=== PATIENT | female | born 1955 | race Caucasian/White ===

== ENCOUNTER 2022-07-11 10:09 | Emergency (ER) | payer MEDICARE ==
[~2022-07-11] VITALS: Ht 170 cm; Wt 73.0 kg
--- NOTE | 2022-07-11 11:16 | ED GU-Female ---
General Chief Complaint: - Reproductive Stated Complaint: CHF | CAN'T URINATE | SENT BY DOCTOR Nursing Triage Note: Patient to ER in [facility] to room 3 w c/o inability to urinate. Patient was sent to ER by doctor. Patient states she was shocked by her implanted defibrilator on Monday and cannot urinate after that. hx of CHF and diabetes. Source: patient, family Exam Limitations: no limitations History of Present Illness Date Seen by Provider: Jul 11, 2022 Time Seen by Provider: 11:11 Initial Comments Patient is a 66-year-old female with a history of CHF, kidney disease, COPD who presents to ED with inability to urinate. She states she started having decreased urine output on Monday. She reports small amount of urination. She had notable 900 ml in her bladder on bedside bladder scan. She states on her defibrillator shocked her. She did not seek medical attention. she was discharged from [facility] on Monday for COVID, kidney failure, liver failure, CHF exacerbation after being transferred from [facility] few weeks prior. She had a port placed to the right side of her chest during her stay. She received milrinone infusion with last infusion performed yesterday by family. She is scheduled for a heart pump in 3 to 4 weeks. She is currently following with rn documentation specialist Dr. Lama and Dr. Fan a [facility]. She had a defibrillator placed by Dr. Porras in February of last year at [facility]. She has not had any chest pain or shortness of breath. She is concerning for the decreased urine output. Denies fever, chills, body aches, headache, dizziness, leg swelling, visual changes, abdominal pain, pain with urination Allergies and Home Medications Allergies Coded Allergies: No Known Drug Allergies (Unverified , 07/11/22) Patient Home Medication List Home Medication List Reviewed: Yes Review of Systems Review of Systems Constitutional: No chills, No diaphoresis, No malaise, No weakness EENTM: No blurred vision, No double vision Respiratory: No cough, No dyspnea on exertion Cardiovascular: No chest pain, No edema, No other Gastrointestinal: No abdominal pain, No diarrhea, No nausea, No vomiting Genitourinary: denies burning, denies discharge; incontinence Musculoskeletal: No back pain, No joint pain Skin: No change in color, No change in hair/nails Physical Exam Vital Signs Vital Signs - First Documented 07/11/22 10:20 Temp 36.7 Pulse 101 Resp 24 B/P (MAP) 111/101 (104) Pulse Ox 96 O2 Delivery Room Air Capillary Refill : Less Than 3 Seconds Height, Weight, BMI Height: '" Weight: lbs. oz. kg; 25.00 BMI Method: General Appearance: WD/WN, no apparent distress HEENT: PERRL/EOMI, normal ENT inspection, TMs normal, pharynx normal Neck: non-tender, full range of motion Cardiovascular: no edema, no murmur, other (irregular) Respiratory: chest non-tender, lungs clear, normal breath sounds, no respirat ory distress Gastrointestinal: normal bowel sounds, non tender, soft, no organomegaly Pelvic: normal external exam, normal adnexa Back: normal inspection, no CVA tenderness Extremities: normal range of motion, non-tender, normal inspection Neurologic/Psychiatric: icing and glaze maker II-XII nml as tested, no motor/sensory deficits, alert, normal mood/affect, oriented x 3 Progress/Results/Core Measures Suspected Sepsis SIRS Temperature: Pulse: 101 Respiratory Rate: 24 Laboratory Tests 07/11/22 11:19: White Blood Count 6.3 Blood Pressure 111 /101 Mean: 104 Laboratory Tests 07/11/22 11:19: Creatinine 1.66H, Platelet Count 247, Total Bilirubin 0.7 Results/Orders Lab Results Laboratory Tests Test 07/11/22 11:19 07/11/22 11:22 Range/Units White Blood Count 6.3 4.3-11.0 10^3/uL Red Blood Count 4.46 3.80-5.11 10^6/uL Hemoglobin 11.8 11.5-16.0 g/dL Hematocrit 37 35-52 % Mean Corpuscular Volume 83 80-99 fL Mean Corpuscular Hemoglobin 27 25-34 pg Mean Corpuscular Hemoglobin Concent 32 32-36 g/dL Red Cell Distribution Width 16.8 H 10.0-14.5 % Platelet Count 247 130-400 10^3/uL Mean Platelet Volume 11.3 9.0-12.2 fL Immature Granulocyte % (Auto) 1 % Neutrophils (%) (Auto) 79 H 42-75 % Lymphocytes (%) (Auto) 12 12-44 % Monocytes (%) (Auto) 6 0-12 % Eosinophils (%) (Auto) 2 0-10 % Basophils (%) (Auto) 1 0-10 % Neutrophils # (Auto) 4.9 1.8-7.8 10^3/uL Lymphocytes # (Auto) 0.7 L 1.0-4.0 10^3/uL Monocytes # (Auto) 0.4 0.0-1.0 10^3/uL Eosinophils # (Auto) 0.1 0.0-0.3 10^3/uL Basophils # (Auto) 0.0 0.0-0.1 10^3/uL Immature Granulocyte # (Auto) 0.0 0.0-0.1 10^3/uL Sodium Level 130 L 135-145 MMOL/L Potassium Level 3.2 L 3.6-5.0 MMOL/L Chloride Level 100 98-107 MMOL/L Carbon Dioxide Level 19 L 21-32 MMOL/L Anion Gap 11 5-14 MMOL/L Blood Urea Nitrogen 36 H 7-18 MG/DL Creatinine 1.66 H 0.60-1.30 MG/DL Estimat Glomerular Filtration Rate 34 BUN/Creatinine Ratio 22 Glucose Level 279 H 70-105 MG/DL Calcium Level 8.2 L 8.5-10.1 MG/DL Corrected Calcium 9.2 8.5-10.1 MG/DL Magnesium Level 1.8 1.6-2.4 MG/DL Total Bilirubin 0.7 0.1-1.0 MG/DL Aspartate Amino Transf (AST/SGOT) 24 5-34 U/L Alanine Aminotransferase (ALT/SGPT) 39 0-55 U/L Alkaline Phosphatase 64 40-136 U/L Troponin I 0.056 H <0.028 NG/ML B-Type Natriuretic Peptide 2301.8 H <100.0 PG/ML Total Protein 6.3 L 6.4-8.2 GM/DL Albumin 2.8 L 3.2-4.5 GM/DL Lipase 27 8-78 U/L Urine Color YELLOW Urine Clarity SL CLOUDY Urine pH 5.5 5-9 Urine Specific [place] <=1.005 1.016-1.022 Urine Protein NEGATIVE NEGATIVE Urine Glucose (UA) 3+ H NEGATIVE Urine Ketones NEGATIVE NEGATIVE Urine Nitrite NEGATIVE NEGATIVE Urine Bilirubin NEGATIVE NEGATIVE Urine Urobilinogen 0.2 < = 1.0 MG/DL Urine Leukocyte Esterase TRACE H NEGATIVE Urine RBC (Auto) 2+ H NEGATIVE Urine RBC 2-5 H /HPF Urine WBC 5-10 H /HPF Urine Crystals NONE /LPF Urine Bacteria MODERATE H /HPF Urine Casts PRESENT /LPF Urine Hyaline Casts 0-2 H /LPF Urine Mucus NEGATIVE /LPF Urine Yeast MODERATE H /HPF Urine Culture Indicated YES My Orders Orders - CONCEPCIÓN LOWE PA Cbc With Automated Diff (07/11/22 11:10) Comprehensive Metabolic Panel (07/11/22 11:10) Lipase (07/11/22 11:10) Bnp Carlos Enrique (07/11/22 11:10) Troponin I [place] (07/11/22 11:10) Ekg Tracing (07/11/22 11:10) Chest 1 View, Ap/Pa Only (07/11/22 11:10) Magnesium (07/11/22 11:10) Ua Culture If Indicated (07/11/22 11:38) Urine Culture (07/11/22 11:22) Vasopressin Injection (Pitressin Injecti (07/11/22 12:48) Furosemide Injection (Lasix Injection) (07/11/22 13:00) Potassium Chloride (Tablet) (K Dur Table (07/11/22 13:45) Heart Healthy (07/11/22 Lunch) Ceftriaxone 1 Gm Pre-Mix (Rocephin 1 Gm (07/11/22 14:23) Cephalexin Capsule (Keflex Capsule) (07/11/22 14:28) Medications Given in ED Current Medications Medications Dose Ordered Sig/Michael Route Start Time Stop Time Status Last Admin Dose Admin Furosemide 40 mg ONCE ONCE IVP 07/11/22 13:00 07/11/22 13:01 DC 07/11/22 13:20 40 MG Potassium Chloride 20 meq ONCE ONCE PO 07/11/22 13:45 07/11/22 13:46 DC 07/11/22 13:53 20 MEQ Vital Signs/I&O 07/11/22 07/11/22 07/11/22 10:20 13:15 15:20 Temp 36.7 Pulse 101 98 79 Resp 24 18 B/P (MAP) 111/101 (104) 91/60 112/74 Pulse Ox 96 97 O2 Delivery Room Air Room Air Capillary Refill : Less Than 3 Seconds Blood Pressure Mean: 104 ECG Comment Sinus rhythm, ventricular premature complexes, left ventricular hypertrophy, anterior Q waves, nonspecific T wave abnormality, 95 bpm, QRS duration 116 MS, QTc 462 MS Critical Care Note Critical Care Start Time: 12:30 Stop Time: 13:10 Total Time (minutes) 40 Progress Hypotension blood pressure 75/60 history of cardiogenic shock requiring vasopressin at this time Departure Communication (PCP) Patient presents ED with decreased urine output. She also reports some chest pain and her defibrillator going off this past Monday. Defibrillator is [employer]. Interrogated with results showing an episode of SVT and converted. She has had no chest pain or shortness of breath since this event. She did not seek medical care. Reviewed old records from [facility] regarding her medication, history. Patient was transferred to [facility] in cardiogenic shock. She is scheduled for a heart pump in 3 to 4 weeks. She is currently on milrinone infusion currently. She does have a port. Patient blood pressure initially 111/101. Blood pressure has been dropping as low as 75/60. Blood pressure appears to be fluctuating. She is currently asymptomatic. Patient EKG showed sinus rhythm with anterior Q waves possibly due to LVH, nonspecific T wave abnormalities in the lateral leads. She had a slight bump in her troponin at 0.051 and a BNP of 2300. Creatinine of 1.6 with a GFR 34. Sodium 130, potassium 3.2. Blood sugar 279. Currently on diabetic medication but does not appear to be on insulin. Review of old records states she was recently taken off Lasix. She is currently on Eliquis. She was placed on spironolactone half a tablet at her discharge from . chest x-ray was negative for pleural effusion, pneumonia. She does not appear toxic or septic. Urinalysis was concern for UTI. Her initial bladder scan showed 900 ml. Catheter was placed. Patient was given a dose of oral Keflex since she had her milrinone and vasopressor running at this time through her port. Refused IM or and a second IV. Not able to review any visits or able to compare lab work after reviewing her ER charts, and information that she received from . Contacted her rn documentation specialist at [facility]. Discussed patient with Dr. Gonzalez cardiology (heart Failure Specialist) at [facility]. Recommended giving Lasix 40 mg. Recommend starting vasopressin at the lowest dose with the milrinone infusion. Dr. Gonzalez is recommending transfer to their ICU. No anticoagulant. Patient will be transferred by EMS. Patient is currently stable. Critical care time secondary to hypotension requiring vasopressin. Total Crical care time of 40 minutes. Improvement of blood pressure with low-dose vasopressin to 112/74 Impression Primary Impression: CHF (congestive heart failure) Additional Impressions: Hypotension Elevated troponin Disposition: XF SHT-TRM HOSP Condition: Stable Transfer Transfer Reason: Exceeds level of care Time Spoke to Accepting Phy: 12:[address] Gonzalez Transfer Time: 12:55 Transfer Facility: [facility] Method of Transfer: EMS Departure-Patient Inst. Referrals: HBARAT CHARLES MD (PCP/Family) Primary Care Physician CONCEPCIÓN LOWE Jul 11, 2022 11:16
[2022-07-11 11:37] LABS: BASOPHILS % (AUTO) 1 % (0-10); EOSINOPHILS # (AUTO) 0.1 10^3/uL (0.0-0.3); EOSINOPHILS % (AUTO) 2 % (0-10); HEMATOCRIT 37 % (35-52); HEMOGLOBIN 11.8 g/dL (11.5-16.0); LYMPHOCYTES # (AUTO) 0.7 10^3/uL (1.0-4.0); LYMPHOCYTES % (AUTO) 12 % (12-44); MEAN CORPUSCULAR HEMOGLOBIN 27 pg (25-34); MEAN CORPUSCULAR HGB CONC 32 g/dL (32-36); MEAN CORPUSCULAR VOLUME 83 fL (80-99); MEAN PLATELET VOLUME 11.3 fL (9.0-12.2); MONOCYTES # (AUTO) 0.4 10^3/uL (0.0-1.0); MONOCYTES % (AUTO) 6 % (0-12); NEUTROPHILS # (AUTO) 4.9 10^3/uL (1.8-7.8); NEUTROPHILS % (AUTO) 79 % (42-75); PLATELET COUNT 247 10^3/uL (130-400); WHITE BLOOD COUNT 6.3 10^3/uL (4.3-11.0)
--- NOTE | 2022-07-11 11:46 | Diagnostic Imaging Report ---
INDICATION: Shortness of breath. EXAMINATION: Portable chest at 11:25 AM. FINDINGS: The right IJ central line tip projects over the SVC. There is a dual-chamber pacemaker. The heart size and pulmonary vascularity are normal. There is a small calcified granuloma at the right lung base. The lungs are otherwise clear. There are no effusions or pneumothoraces. IMPRESSION: No acute abnormalities in the chest. Dictated by: Dictated on workstation # [id number]
[2022-07-11 11:47] LABS: BILIRUBIN,URINE NEGATIVE (NEGATIVE); CLARITY,URINE SL CLOUDY; COLOR,URINE YELLOW; GLUCOSE, URINE (UA) 3+ (NEGATIVE); KETONES,URINE NEGATIVE (NEGATIVE); LEUKOCYTE ESTERASE ,URINE TRACE (NEGATIVE); NITRITE,URINE NEGATIVE (NEGATIVE); PH,URINE 5.5 (5-9); PROTEIN,URINE NEGATIVE (NEGATIVE)
[2022-07-11 11:52] LABS: ALBUMIN 2.8 GM/DL (3.2-4.5); POTASSIUM 3.2 MMOL/L (3.6-5.0)
[2022-07-11 11:54] LABS: CALCIUM 8.2 MG/DL (8.5-10.1)
[2022-07-11 11:55] LABS: TOTAL PROTEIN 6.3 GM/DL (6.4-8.2)
[2022-07-11 11:57] LABS: BILIRUBIN,TOTAL 0.7 MG/DL (0.1-1.0)
[2022-07-11 11:59] LABS: CREATININE SERUM 1.66 MG/DL (0.60-1.30)
[2022-07-11 12:01] LABS: MAGNESIUM 1.8 MG/DL (1.6-2.4)
[2022-07-11 12:08] LABS: BACTERIA,URINE MODERATE /HPF; HYALINE CASTS, URINE 0-2 /LPF
[2022-07-11 12:09] LABS: YEAST,URINE MODERATE /HPF
[2022-07-11] MEDS ORDERED: VASOPRESSIN INJECTION 20 UNIT in NS (IVPB) 100 ML IV STA ×2 (12:39→12:48)
[2022-07-11] MEDS ORDERED: FUROSEMIDE 40 MG/4 ML INJ (LASIX) IVP ONE (13:00)
[2022-07-11] MEDS ORDERED: KCL 20 MEQ TAB (K-DUR) PO ONE (13:45)
[2022-07-11] MEDS ORDERED: cefTRIAXone 1 GM PRE-MIX 50 ML IV STA (14:23)
[2022-07-11] MEDS ORDERED: CEPHALEXIN 250 MG (KEFLEX) CAP PO STA (14:28)
[2022-07-11 15:20] VITALS: BP 112/74
== END 2022-07-11 15:20 | disposition short-term general hospital (02) ==
LOC: EDUNIT# 10:09 → ER 10:14
DX: R33.9 Retention of urine, unspecified (principal); I95.9 Hypotension, unspecified; R77.8 Other specified abnormalities of plasma proteins; R07.9 Chest pain, unspecified; E11.9 Type 2 diabetes mellitus without complications; I11.0 Hypertensive heart disease with heart failure; I50.9 Heart failure, unspecified; N28.9 Disorder of kidney and ureter, unspecified; Z79.01 Long term (current) use of anticoagulants; Z95.810 Presence of automatic (implantable) cardiac defibrillator
CPT/HCPCS: 36415; 51702; 71045; 80053; 81000; 83690; 83735; 83880; 84484; 85025; 87088; 93005